=== PATIENT | male | born 1955 | race Caucasian/White ===

== ENCOUNTER 2017-05-06 07:27 | Day surgery (SDC) | payer BC ==
[~2017-05-06 07:27] MED LIST: Metoclopramide 10 MG/2 ML SDV IV PRN; Sodium Chloride 0.9% 1,000 ML IV SCH
[2017-05-06] MEDS ORDERED: Propofol 200 MG/20 ML SDV ONE (09:05)
[2017-05-06] MEDS ORDERED: Propofol 1,000 MG/100 ML SDV ONE (09:05)
[2017-05-06 13:55] VITALS: BP 136/83
--- NOTE | 2017-05-06 15:21 | OR ---
DATE OF OPERATION: 05/06/2017 PREOPERATIVE DIAGNOSIS: Screening colonoscopy. POSTOPERATIVE DIAGNOSIS: 1. Rectosigmoid polyp. 2. Otherwise normal colonoscopy. OPERATION: Screening colonoscopy. COMPLICATIONS: None. DRAINS: None. SPECIMENS: Rectosigmoid polyp. ESTIMATED BLOOD LOSS: Minimal. ANESTHESIA: General propofol anesthesia. INDICATION: Mr. Vargas is a 61-year-old gentleman here for his routine screening colonoscopy. His previous was approximately 10 years ago. He is currently asymptomatic with average risk. The above-mentioned procedure was explained. The risks, benefits, complications were explained. The patient understood and agreed and was brought to the operating room. DESCRIPTION OF PROCEDURE: The patient was brought to the operating room, placed in a left lateral decubitus position on the operating room table. Satisfactory general propofol anesthesia was administered. We began by performing a rectal examination, which was within normal limits. I then placed the endoscope by finger introduction into the rectum and subsequently advanced this to the level of the cecum. The cecum was identified by the appendiceal orifice, ileocecal valve, and cecal strap. The terminal ileum was intubated and this was normal. Careful evaluation of the mucosa was performed on withdrawal. There were no telangiectasias, neoplastic growths, or diverticula, however, there was a small broad- based less than 0.5 cm polyp at the rectosigmoid junction. This was easily removed by cold biopsy polypectomy and completely removed and retrieved and passed off for permanent histology. No other identifiable lesions within the colon. Retroflexion was performed within the rectum, which revealed no significant findings. The colon was decompressed and the endoscope was withdrawn. The patient tolerated the procedure well. There were no complications. Instrument count was correct. The patient was woken in the OR and taken to the PACU for recovery. REGINO/ALVARO /[id number]
== END 2017-05-06 11:20 | disposition home or self-care (01) ==
LOC: LB.SDS 07:27
PROVIDERS: ATTEND Surgery
DX: Z12.11 Encounter for screening for malignant neoplasm of colon (principal); K63.5 Polyp of colon; K62.1 Rectal polyp; I10 Essential (primary) hypertension; E78.00 Pure hypercholesterolemia, unspecified; Z79.899 Other long term (current) drug therapy
CPT/HCPCS: 45380; 88305; J2704; J7040; J3490

== ENCOUNTER → 2019-08-10 | Outpatient (CLI) | payer BC ==
--- NOTE | 2019-08-10 11:41 | CR ---
DATE OF SERVICE: 08/10/19 CLINICAL DATA: S/P TOTAL RIGHT KNEE REPLACEMENT RIGHT KNEE: Comparison is made to a prior exam dated 07/12/19. The patient is status post right total knee arthroplasty. The prosthesis appears intact. There is a large joint effusion. No acute fracture or dislocation. No lytic or blastic bone lesions. [id number] [facility]
== END ==
LOC: LB.DI 10:19
PROVIDERS: ATTEND Physician Assistant
DX: Z47.1 Aftercare following joint replacement surgery (principal); M25.461 Effusion, right knee; Z96.651 Presence of right artificial knee joint
CPT/HCPCS: 73562-RT